=== PATIENT | female | born 1975 | race Caucasian/White ===

== ENCOUNTER 2016-08-28 00:53 | Emergency (ER) | payer OTHER ==
[~2016-08-28] VITALS: Ht 162.6 cm; Wt 52.3 kg
[~2016-08-28 00:53] MED LIST: IBUP800T23 PO; TRAM50 PO
[2016-08-28 01:01] VITALS: BP 102/46; PULSE 87; RESP 16; TEMP 98.3; O2SAT 99
[2016-08-28] MEDS ORDERED: BUTA1CAP PO (01:27)
--- NOTE | 2016-08-28 01:36 | PD ---
HPI Chief Complaint: Musculoskeletal Complaint Time Seen by Provider: 01:33 Travel History International Travel<30 days: No Contact w/Intl Traveler<30days: No Traveled to known affect area: No History of Present Illness HPI 40-year-old female presents to the emergency department by private transportation for complaint of right foot pain since 9 AM Sunday morning. Patient states that she was at a skate park with her child and twisted her foot. Patient denies other injury. No previous injury to the right foot. Patient is noted swelling to the proximal lateral aspect of the foot. Patient has used ice without symptomatic relief. Pain is 8/10 intensity. PFSH Past Medical History Narrative Medical Migraines left foot surgery nursing notes reviewed Diminished Hearing: No Headaches: Yes (MIGRAINES) Immunizations Current: Yes Migraines: Yes Tetanus Vaccination: < 5 Years Influenza Vaccination: No ?: Not LMP: 1ST WEEK OF JULY Tubal Ligation: Yes Past Surgical History Oral Surgery: Yes ([place] teeth extraction) Social History Alcohol Use: Yes (Socially) Tobacco Use: No (Quit 18 years ago) Substance Use: No Allergies-Medications (Allergen,Severity, Reaction): Coded Allergies: No Known Allergies (Unverified , 08/28/16) Reported Meds & Prescriptions Reported Meds & Active Scripts Active Reported Fioricet (Jzznfhmpit-Signaucznzczf-Vtzebgmt) 50-300-40 Mg Cap 1-2 Cap PO Q6H PRN Review of Systems Musculoskeletal: Positive: Limited ROM (right foot), Edema (right foot pain right foot), Pain Skin: No Rash Physical Exam Narrative Well-developed well-nourished female in no acute distress no respiratory distress Extremity attention right foot; patient demonstrates full range of motion of the right ankle without any bony abnormality or soft tissue swelling over the right foot does show soft tissue swelling and tenderness to the proximal lateral aspect of the right foot was intact sensation brisk capillary refill less than 2 seconds and dorsalis pedis pulses 2+ to palpation. Data Data Last Documented VS Vital Signs Date Time Temp Pulse Resp B/P Pulse Ox O2 Delivery O2 Flow Rate FiO2 08/28/16 01:01 98.3 87 16 102/46 99 Room Air Orders Foot, Complete ([id number]) (08/28/16 ) MDM Medical Decision Making Medical Screen Exam Complete: Yes Emergency Medical Condition: Yes Medical Record Reviewed: Yes Interpretation(s) right foot xr: nabi Differential Diagnosis Sprain strain subluxation dislocation fracture Narrative Course Imaging study of the right foot ordered Diagnosis Primary Impression: Sprain of right foot Qualified Code: S93.601A - Sprain of right foot, initial encounter Patient Instructions: General Instructions Med/Other Pt SpecificInfo: Prescription(s) given Scripts Ibuprofen 600 Mg [id number] Mg PO Q6H PRN (PAIN GREATER THAN 6) #12 TAB Ref 0 Prov:Ashley Klein MD 08/28/16 Tramadol 50 Mg Tab50 Mg PO Q6H PRN (PAIN) #12 TAB Ref 0 Prov:Ashley Klein MD 08/28/16 Disposition: 01 DISCHARGE HOME Condition: Stable Ashley Klein MD Aug 28, 2016 01:36
[2016-08-28] MEDS ORDERED: IBUP-232 PO (01:54)
[2016-08-28] MEDS ORDERED: TRAM50TA PO (01:54)
[2016-08-28] MEDS ORDERED: IBUPROFEN 600 MG TAB PO ONE (02:00)
--- NOTE | 2016-08-28 02:05 | RADHPO ---
EXAM DATE/TIME: 08/28/2016 01:43 [facility] COMPARISON: No previous studies available for comparison. INDICATIONS : Twisted right foot, pain MEDICAL HISTORY : None. SURGICAL HISTORY : None. ENCOUNTER: Initial ACUITY: 1 day PAIN SCORE: 7/10 LOCATION: Right lateral foot FINDINGS: Three view examination of the right foot demonstrates no soft tissue swelling, dislocation, or fractu re. The tarsal bones appear intact. The interphalangeal and metatarsophalangeal joints are intact. The calcaneus is intact. Bony mineralization is normal. CONCLUSION: Unremarkable examination of the right foot. Artem Sloan Jr., MD on August 28, 2016 at 2:04 Board Certified Radiologist. This report was verified electronically.
== END 2016-08-28 02:45 | disposition home or self-care (01) ==
LOC: PHED 00:53
DX: S93.601A Unspecified sprain of right foot, initial encounter (principal); X50.1XXA Overexertion from prolonged static or awkward postures, initial encounter; Y92.39 Other specified sports and athletic area as the place of occurrence of the external cause
CPT/HCPCS: 73630; 99283; E0113

== ENCOUNTER 2017-08-01 12:43 | Emergency (ER) | payer OTHER ==
[~2017-08-01] VITALS: Ht 165.1 cm; Wt 70.0 kg
[~2017-08-01 12:43] MED LIST changes: +BUTA1CAP PO; +IBUP-232 PO; -IBUP800T23 PO; -TRAM50 PO; +TRAM50TA PO
[2017-08-01 12:47] VITALS: BP 129/70; PULSE 128; RESP 18; TEMP 98.6; O2SAT 100
[2017-08-01 13:11] VITALS: O2SAT 100
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
[2017-08-01] MEDS ORDERED: SODIUM CHLORIDE 0.9% FLUSH 10 ML FLUSH IVF PRN (13:15)
[2017-08-01 14:17] LABS: AUTOMATED NEUTROPHIL # 7.4 TH/MM3 (1.8-7.7); BASOPHIL # 0.1 TH/MM3 (0-0.2); BASOPHIL % 0.6 % (0.0-2.0); EOSINOPHIL % 0.2 % (0.0-4.0); HEMATOCRIT 34.1 % (35.0-46.0); HEMO FLAGS DIFF FINAL; LYMPH % 24.1 % (9.0-44.0); LYMPHOCYTE # 2.6 TH/MM3 (1.0-4.8); MEAN CELL VOLUME 85.6 FL (80.0-100.0); MEAN CORPUSCULAR HEMOGLOBIN 28.1 PG (27.0-34.0); MEAN CORPUSCULAR HGB CONC 32.8 % (32.0-36.0); MONO % 6.4 % (0.0-8.0); NEUT % 68.7 % (16.0-70.0); PLATELET COUNT 316 TH/MM3 (150-450); RED BLOOD COUNT 3.98 MIL/MM3 (4.00-5.30); RED CELL DISTRIBUTION WIDTH 13.3 % (11.6-17.2); WHITE BLOOD COUNT 10.8 TH/MM3 (4.0-11.0)
[2017-08-01 14:43] LABS: ALT (GPT) 23 U/L (10-53); ANION GAP 9 MEQ/L (5-15); AST (GOT) 19 U/L (15-37); BICARBONATE 23.1 MEQ/L (21.0-32.0); BLOOD UREA NITROGEN 13 MG/DL (7-18); CHLORIDE 105 MEQ/L (98-107); GLOMERULAR FILTRATION RATE 59 ML/MIN (>89); POTASSIUM 3.7 MEQ/L (3.5-5.1); SODIUM (NA) 137 MEQ/L (136-145)
[2017-08-01 14:45] LABS: ALKALINE PHOSPHATASE 38 U/L (45-117); TOTAL BILIRUBIN ADULT 0.3 MG/DL (0.2-1.0)
[2017-08-01 14:55] LABS: ALCOHOL LESS THAN 3 MG/DL (0-5)
== END 2017-08-01 18:01 | disposition left against medical advice (07) ==
LOC: NEPE 12:43
DX: T40.601A Poisoning by unspecified narcotics, accidental (unintentional), initial encounter (principal); V89.2XXA Person injured in unspecified motor-vehicle accident, traffic, initial encounter
CPT/HCPCS: 80053; 80307; 85025; 99283